=== PATIENT | male | born 1990 | race African-American/Black ===

== ENCOUNTER 2019-09-06 20:17 | Emergency (ER) | payer MEDICAID ==
[~2019-09-06] VITALS: Ht 177.8 cm; Wt 75.0 kg
[2019-09-06] MEDS: FLUORESCEIN SODIUM 1 MG STRIP OD ONE (20:51)
[2019-09-06] MEDS: PROPARACAINE HCL 0.5% 15 ML OPHTHALMIC SOLUTION OS ONE (20:52)
[2019-09-06 20:55] VITALS: BP 127/89
[2019-09-06] MEDS: HYPROMELLOSE 0.5% 15 ML OPHTHALMIC SOLUTION OS ONE (21:33)
[2019-09-06 21:49] LABS: AMPHET/METH SCREEN,URINE NEGATIVE (NEGATIVE); BARBITURATE SCREEN, URINE NEGATIVE (NEGATIVE); BENZODIAZEPINES SCREEN,URINE NEGATIVE (NEGATIVE); CANNABINOID SCREEN,URINE POSITIVE (NEGATIVE); COCAINE SCREEN,URINE NEGATIVE (NEGATIVE); METHADONE SCREEN, URINE NEGATIVE (NEGATIVE); OPIATE SCREEN,URINE NEGATIVE (NEGATIVE)
[2019-09-06 21:51] LABS: PHENCYCLIDINE SCREEN,URINE NEGATIVE (NEGATIVE)
== END 2019-09-06 21:49 | disposition home or self-care (01) ==
LOC: EMS 20:19
DX: H57.12 Ocular pain, left eye (principal); F17.210 Nicotine dependence, cigarettes, uncomplicated; F12.90 Cannabis use, unspecified, uncomplicated
CPT/HCPCS: 93005

== ENCOUNTER 2020-02-17 20:32 | Emergency (ER) | payer MEDICAID ==
[~2020-02-17] VITALS: Ht 177.8 cm; Wt 65.9 kg
[2020-02-17] MEDS ORDERED: CIPROFLOXACIN HCL 0.2%/HYDROCORT 1% 10 ML OTIC SUSPENSION AD ONE (23:45)
[2020-02-17] MEDS ORDERED: IBUPROFEN 600 MG TABLET PO ONE (23:45)
[2020-02-18 00:03] VITALS: BP 112/56
== END 2020-02-18 00:17 | disposition home or self-care (01) ==
LOC: EMS 20:32
DX: H60.91 Unspecified otitis externa, right ear (principal)

== ENCOUNTER 2020-09-26 02:20 | Emergency (ER) | payer MEDICAID ==
[~2020-09-26] VITALS: Ht 175.3 cm; Wt 86.4 kg
[2020-09-26 04:00] VITALS: BP 111/65
== END 2020-09-26 05:44 | disposition left against medical advice (07) ==
LOC: EMS 02:24
DX: M79.642 Pain in left hand (principal); F17.210 Nicotine dependence, cigarettes, uncomplicated; F12.90 Cannabis use, unspecified, uncomplicated
CPT/HCPCS: 99283

== ENCOUNTER 2020-12-28 22:51 | Emergency (ER) | payer MEDICAID ==
[~2020-12-28] VITALS: Ht 180.3 cm; Wt 90.9 kg
[2020-12-29] MEDS ORDERED: PROPARACAINE HCL 0.5% 15 ML OPHTHALMIC SOLUTION OS ONE (04:00)
[2020-12-29] MEDS ORDERED: FLUORESCEIN SODIUM 1 MG STRIP OS ONE (04:00)
[2020-12-29 04:29] VITALS: BP 138/89
[2020-12-29] MEDS ORDERED: ERYTHROMYCIN 0.5% 3.5 GM TUBE OPHTHALMIC OINTMENT OS ONE (04:30)
== END 2020-12-29 04:40 | disposition home or self-care (01) ==
LOC: EMS 22:57
DX: S05.02XA Injury of conjunctiva and corneal abrasion without foreign body, left eye, initial encounter (principal); H00.016 Hordeolum externum left eye, unspecified eyelid; X58.XXXA Exposure to other specified factors, initial encounter; Y93.89 Activity, other specified; Y92.89 Other specified places as the place of occurrence of the external cause; Y99.8 Other external cause status
CPT/HCPCS: 99283